=== PATIENT | male | born 1990 | race American Indian/Alaskan Native ===

== ENCOUNTER 2017-06-02 12:43 | Emergency (ER) | payer OTHER ==
[2017-06-02] MEDS ORDERED: TESSALON PERLES PO ONE (16:14)
--- NOTE | 2017-06-02 17:02 | XRay Report ---
FINAL REPORT EXAM: XR CHEST ROUTINE 2V HISTORY: cough TECHNIQUE: Chest two views PRIORS: None. FINDINGS: There is a small right inferior lateral pneumothorax. No significant atelectasis. No pulmonary infiltrate identified. The cardiac and mediastinal contours unremarkable. Skeletal structures demonstrate no evidence for acute fracture. No pleural fluid collection identified IMPRESSION: Small right pneumothorax estimated less than 10 percent
[2017-06-02] MEDS ORDERED: TORADOL IM ONE (18:30)
[2017-06-02] MEDS ORDERED: TYLENOL PO ONE (18:30)
--- NOTE | 2017-06-02 18:33 | Emergency Department Report ---
ED General Adult HPI - General Chief complaint: Upper Respiratory Infection Stated complaint: FLU LIKE SYMPTOMS Time Seen by Provider: 06/02/17 16:12 Source: patient, RN notes reviewed Mode of arrival: Ambulatory Limitations: No Limitations - History of Present Illness Initial comments: This is a 27-year-old gentleman presents to the ER with complaint of cough, mucus production, body aches, general malaise. Symptoms present for 5-7 days. They're constant. They have no exacerbating or relieving factors. They do not radiate anywhere. -: Gradual Location: back, left, right, upper extremity, lower extremity Quality: aching Consistency: intermittent Improves with: rest Worsens with: movement Associated Symptoms: cough, fever/chills, loss of appetite, malaise, weakness. denies: confusion, chest pain, diaphoresis, headaches, nausea/vomiting, rash, seizure, shortness of breath, syncope - Related Data Previous Rx's Medication Instructions Recorded Last Taken Type Acetaminophen [Tylenol Arthritis] 650 mg PO Q6HR PRN #30 tablet.er 06/02/17 Unknown Rx Albuterol Sulfate [Proair 90 mcg IH Q4HR PRN #2 aer.pow.ba 06/02/17 Unknown Rx Respiclick] Benzonatate [Tessalon Perles] 100 mg PO Q8HR PRN #30 capsule 06/02/17 Unknown Rx Ibuprofen [Motrin] 600 mg PO Q8H PRN #30 tablet 06/02/17 Unknown Rx Allergies Allergy/AdvReac Type Severity Reaction Status Date / Time No Known Allergies Allergy Unverified 06/02/17 13:03 ED Review of Systems ROS: Stated complaint: FLU LIKE SYMPTOMS Other details as noted in HPI ED Past Medical Hx - Past Medical History Previous Medical History?: No - Surgical History Past Surgical History?: No - Social History Smoking Status: Never Smoker Substance Use Type: None - Medications Home Medications: Home Medications Medication Instructions Recorded Confirmed Last Taken Type Acetaminophen [Tylenol Arthritis] 650 mg PO Q6HR PRN #30 tablet.er 06/02/17 Unknown Rx Albuterol Sulfate [Proair 90 mcg IH Q4HR PRN #2 aer.pow.ba 06/02/17 Unknown Rx Respiclick] Benzonatate [Tessalon Perles] 100 mg PO Q8HR PRN #30 capsule 06/02/17 Unknown Rx Ibuprofen [Motrin] 600 mg PO Q8H PRN #30 tablet 06/02/17 Unknown Rx ED Physical Exam - General Limitations: No Limitations General appearance: alert, in no apparent distress - Head Head exam: Present: atraumatic, normocephalic - Eye Eye exam: Present: normal appearance, EOMI. Absent: nystagmus - ENT ENT exam: Present: normal exam, normal orophraynx, mucous membranes moist, normal external ear exam - Neck Neck exam: Present: normal inspection, full ROM - Respiratory Respiratory exam: Present: normal lung sounds bilaterally. Absent: respiratory distress, wheezes, rales, rhonchi, stridor, chest wall tenderness, accessory muscle use, decreased breath sounds, prolonged expiratory - Cardiovascular Cardiovascular Exam: Present: regular rate, normal rhythm, normal heart sounds. Absent: systolic murmur, diastolic murmur, rubs, gallop - GI/Abdominal GI/Abdominal exam: Present: soft, normal bowel sounds. Absent: distended, tenderness, guarding, rebound, rigid, pulsatile mass - Rectal Rectal exam: Present: deferred - Extremities Exam Extremities exam: Present: normal inspection, full ROM, normal capillary refill. Absent: tenderness, pedal edema, joint swelling, calf tenderness - Back Exam Back exam: Present: normal inspection, full ROM. Absent: tenderness, CVA tenderness (R), paraspinal tenderness, vertebral tenderness - Neurological Exam Neurological exam: Present: alert, oriented X3, CN II-XII intact, normal gait, other (Extraocular movements intact. Tongue midline. No facial droop. Facial sensation intact to light touch in the V1, V2, V3 distribution bilaterally. 5 and 5 strength in 4 extremities.. Sensation is intact to light touch in 4 extremities.). Absent: motor sensory deficit - Psychiatric Psychiatric exam: Present: normal affect, normal mood - Skin Skin exam: Present: warm, dry, intact, normal color. Absent: rash ED Course Vital Signs 06/02/17 06/02/17 13:01 18:38 Temperature 98.2 F 97.3 F L Pulse Rate 87 83 Respiratory 18 16 Rate Blood Pressure 162/79 Blood Pressure 127/83 [Right] O2 Sat by Pulse 98 95 Oximetry ED Medical Decision Making - Lab Data Vital Signs 06/02/17 06/02/17 13:01 18:38 Temperature 98.2 F 97.3 F L Pulse Rate 87 83 Respiratory 18 16 Rate Blood Pressure 162/79 Blood Pressure 127/83 [Right] O2 Sat by Pulse 98 95 Oximetry - Radiology Data Radiology results: report reviewed, image reviewed interpreted by me: X-ray of the chest, second performance, negative for pneumothorax. X-ray #1 of the chest, interpreted by radiology, no pneumonia, positive small right-sided pneumothorax 10%. - Medical Decision Making Differential diagnosis, including but not limited to: Bronchitis, pneumonia, influenza-like illness, incidental asymptomatic pneumothorax Assessment and plan: 27-year-old male with 6-7 days of influenza like illness who is afebrile with reassuring vital signs. His symptoms have been present for greater than 72 hours and he is therefore not a Tamiflu candidate. He is afebrile with reassuring vital signs, and playing in a site on the phone, he has been observed in the ER for about 6-1/2 hours. Initial x-ray of the chest suggested an incidental right-sided lateral pneumothorax, less than 10% of lung volume. He is placed on supplemental oxygen, and a repeat x-ray to my interpretation demonstrates resolution of said pneumothorax. Case and x-rays were presented to consulting pulmonology, Dr. Radhika Bradley; he reviewed the x- rays of the chest with myself, and we are both of the opinion that the patient is suitable to be discharged with instructions for close outpatient follow-up. The consulting commercial loan underwriter indicated the patient could follow-up with him next week, and the patient endorses strong desire to be discharged. He felt improved after Tylenol and Toradol, and he is instructed to follow-up in 48 hours for repeat exam and x-ray of the chest. He will be discharged at this time, return precautions are reviewed. Critical care attestation.: If time is entered above; I have spent that time in minutes in the direct care of this critically ill patient, excluding procedure time. ED Disposition Clinical Impression: Influenza-like illness Disposition: DC-01 TO HOME OR SELFCARE Is pt being admited?: No Does the pt Need Aspirin: No Condition: Good Instructions: Spontaneous Pneumothorax (ED), Influenza (ED) Additional Instructions: Make sure to wash hands thoroughly before and after coughing, sneezing, handling food. Take the pain medication, breathing medication as directed. Return in 2 days, 48 hours for repeat physical exam, x-ray of the chest. Avoid strenuous physical activity, heavy lifting, and contact sports. Mixture and to follow-up with either her primary care doctor or lung doctor within the next 7 days. Return to the ER right away with new pain, worsened pain, migration of pain, fevers, chills, lethargy, irritability, projectile vomiting, change in mental status, confusion, inability to tolerate liquid feeds. Please note that second x-ray the chest was interpreted by the ER physician as being unremarkable. However, this x-ray will be reinterpreted by radiologist within the next 24 hours, and sometimes the final interpretation changes. Therefore, have her primary care doctor contact the medical records department to obtain final x-ray result, we'll contact the medical records department yourself to obtain the results. Prescriptions: Acetaminophen [Tylenol Arthritis] 650 mg PO Q6HR PRN #30 tablet.er PRN Reason: Pain Albuterol Sulfate [Proair Respiclick] 90 mcg IH Q4HR PRN #2 aer.pow.ba PRN Reason: Wheezing Benzonatate [Tessalon Perles] 100 mg PO Q8HR PRN #30 capsule PRN Reason: Cough Ibuprofen [Motrin] 600 mg PO Q8H PRN #30 tablet PRN Reason: Pain Referrals: PRIMARY CARE, [Primary Care Provider] - 3-5 Days VIJAYA MAGALLON MD [Staff Physician] - 3-5 Days MARNI QUINTERO MD [Staff Physician] - 3-5 Days
[2017-06-02 18:39] VITALS: BP 127/83
--- NOTE | 2017-06-02 21:09 | XRay Report ---
FINAL REPORT EXAM: XR CHEST ROUTINE 2V HISTORY: repeat for ptx TECHNIQUE: Two views of the chest Comparison: Earlier same day FINDINGS: Heart size is normal. The previously identified small right pneumothorax is not definitely seen on this repeat exam. There is no chest tube identified. Lungs are clear and well expanded without focal infiltrate or consolidation. There is no pleural effusion IMPRESSION: Normal chest x-ray. No pneumothorax is identified on the current exam. The previously identified small right lateral pneumothorax is no longer seen. Lungs are well expanded.
== END 2017-06-02 20:02 ==
LOC: ED 12:43
DX: J11.1 Influenza due to unidentified influenza virus with other respiratory manifestations (principal)
CPT/HCPCS: 71046; 87400; 96372; 99284; J1885